=== PATIENT | female | born 1950 | race Caucasian/White ===

== ENCOUNTER 2017-06-05 13:31 | Outpatient (CLI) | payer MEDICARE, BC ==
--- NOTE | 2017-06-05 15:18 | CT ---
CT PULMONARY LUNG SCREENING LOW DOSE CHEST CT: Date: 06/05/17 COMPARISON: None. HISTORY: Current smoker, history of smoking for 40 years - 1 pack per day. TECHNIQUE: Noncontrast CT imaging at 1.25 mm intervals from the thoracic inlet through the upper abdomen obtaine d without contrast. Coronal and sagittal reformatted imaging obtained. FINDINGS: The lack of contrast limits assessment of the imaged viscera, the vascular structures, and for lympha denopathy. There is atherosclerotic calcification of the aortic arch in the region of the proximal left coronary artery. Limited assessment of the upper abdomen appears grossly unremarkable. There is no pleural, p ericardial, or mediastinal fluid evident. No pneumothorax is seen on either side. No suspicious pulmonary parenchymal mass lesion/nodule identified on either side. There are a few sca ttered calcified granulomata identified within the right lung. There is a noncalcified right lower lo be pulmonary nodule on axial image 40 measuring in the 2-3 mm range. Osseous structures demonstrate a nonspecific small sclerotic focus within the T11 vertebral body right of midline, measuring less catrachita n 1.0 cm in size, likely on the basis of benign bone island in the absence of known metastatic diseas e. IMPRESSION: 1. Lung-RADS Category 2 - Benign appearance or behavior. Continue annual screening with low dose maldon[address] st CT in 12 months. 2. Lung-RADS Category S - Atherosclerotic calcification as detailed above. POS: VANESSA
== END 2017-06-05 13:32 | disposition home or self-care (01) ==
LOC: ULT 13:31
PROVIDERS: ATTEND Family Medicine
DX: Z00.00 Encounter for general adult medical examination without abnormal findings (principal); Z12.2 Encounter for screening for malignant neoplasm of respiratory organs; I51.7 Cardiomegaly; F17.210 Nicotine dependence, cigarettes, uncomplicated; I70.0 Atherosclerosis of aorta; I08.1 Rheumatic disorders of both mitral and tricuspid valves; I87.8 Other specified disorders of veins
CPT/HCPCS: 93306; G0297

== ENCOUNTER 2018-04-14 09:17 | Outpatient (CLI) | payer MEDICARE, BC ==
--- NOTE | 2018-04-14 11:19 | BD ---
BONE DENSITOMETRY USING DEXA: HISTORY: Postmenopausal screening for osteoporosis. LUMBAR SPINE BMD (g/cm2) T-SCORE Z-SCORE L1 1.009 0.2 1.8 L2 1.022 -0.1 1.8 L3 0.993 -0.8 1.1 L4 0.983 -0.7 1.3 TOTAL 1.001 -0.4 1.4 NECK 0.772 -0.8 0.9 TOTAL 0.970 0.2 1.5 IMPRESSION: Normal bone mineral density. No evidence of osteopenia/osteoporosis. POS: C
== END 2018-04-14 09:18 | disposition home or self-care (01) ==
LOC: BICMAMMO 09:17
PROVIDERS: ATTEND Family Medicine
DX: Z12.31 Encounter for screening mammogram for malignant neoplasm of breast (principal); Z78.0 Asymptomatic menopausal state
CPT/HCPCS: 77063; 77067; 77080

== ENCOUNTER 2019-09-07 09:45 | Outpatient (CLI) | payer MEDICARE, BC ==
--- NOTE | 2019-09-07 11:14 | CT ---
CT THORAX NONCONTRAST: (Low dose CT pulmonary lung scan screening) DATE: 09/07/2019 HISTORY: 68-year-old female smoker presents for lung cancer screening. FINDINGS: No suspicious pulmonary nodules. Calcified granuloma posterior segment right upper lobe. Otherwise, l ungs are clear. Trachea and bronchi are normal. No thoracic aortic aneurysm, cardiomegaly, pericardial effusion, pleural effusion, pneumothorax, or mediastinal lymphadenopathy. IMPRESSION: Lung RADS category 2-benign appearance or behavior. Continue annual screening with low dose chest CT in one year.
== END 2019-09-07 09:46 | disposition home or self-care (01) ==
LOC: BICCT 09:45
PROVIDERS: ATTEND Family Medicine
DX: Z12.2 Encounter for screening for malignant neoplasm of respiratory organs (principal); F17.210 Nicotine dependence, cigarettes, uncomplicated
CPT/HCPCS: G0297

== ENCOUNTER 2019-11-05 05:44 | Day surgery (SDC) | payer MEDICARE, BC ==
[2019-11-01 13:00] VITALS: BMI 31.1
[2019-11-05] MEDS ORDERED: Fentanyl 100 MCG/2 ML VIAL ONE (07:20)
[2019-11-05] MEDS ORDERED: Midazolam HCl 2 mg/2 ml Vial ONE (07:20)
[2019-11-05] MEDS ORDERED: hydrALAZINE 20 MG/ML VIAL ONE ×2 (10:25→11:04)
[2019-11-05] MEDS ORDERED: hydrALAZINE 20 MG/ML VIAL SLOW IVP SCH (11:15)
[2019-11-05] MEDS ORDERED: Iopamidol 370 76% 100 ML VIAL ONE (13:27)
[2019-11-06] MEDS ORDERED: hydrALAZINE 20 MG/ML VIAL SLOW IVP SCH (10:25)
== END 2019-11-05 11:48 | disposition home or self-care (01) ==
LOC: CCL 05:44
PROVIDERS: ATTEND Internal Medicine Cardiovascular Disease
PROC: 4A023N7 Measurement of Cardiac Sampling and Pressure, Left Heart, Percutaneous Approach (ICD-10-PCS; principal; 2019-11-05)
PROC: B2111ZZ Fluoroscopy of Multiple Coronary Arteries using Low Osmolar Contrast (ICD-10-PCS; 2019-11-05)
DX: R07.89 Other chest pain (principal); E78.00 Pure hypercholesterolemia, unspecified; I10 Essential (primary) hypertension; E11.9 Type 2 diabetes mellitus without complications; E78.5 Hyperlipidemia, unspecified; Q20.8 Other congenital malformations of cardiac chambers and connections; M19.90 Unspecified osteoarthritis, unspecified site; M79.7 Fibromyalgia; F17.210 Nicotine dependence, cigarettes, uncomplicated; E55.9 Vitamin D deficiency, unspecified; Z79.1 Long term (current) use of non-steroidal anti-inflammatories (NSAID); Z79.899 Other long term (current) drug therapy; Z88.8 Allergy status to other drugs, medicaments and biological substances
CPT/HCPCS: 93458; 99152; J0360; J1644; J2250; J3010; Q9967

== ENCOUNTER 2019-11-29 10:54 | Outpatient (CLI) | payer MEDICARE, BC ==
--- NOTE | 2019-11-29 12:20 | RAD ---
RIGHT SHOULDER 3 VIEWS: HISTORY: Shoulder pain. FINDINGS: No fracture or dislocation. AC joint normally aligned. IMPRESSION: No acute finding. POS: AH
== END 2019-11-29 10:55 | disposition home or self-care (01) ==
LOC: SCSRAD 10:54
PROVIDERS: ATTEND Family Medicine
DX: M25.511 Pain in right shoulder (principal)

== ENCOUNTER 2021-01-08 08:53 | Outpatient (CLI) | payer MEDICARE, BC | END 2021-01-08 08:54 | disposition home or self-care (01) | LOC: BICMAMMO 08:53 | PROVIDERS: ATTEND Family Medicine | DX: Z12.31 Encounter for screening mammogram for malignant neoplasm of breast (principal) | CPT/HCPCS: 77063; 77067 ==

== ENCOUNTER 2021-04-26 13:00 | Outpatient (CLI) | payer MEDICARE, BC | END 2021-04-26 13:01 | disposition home or self-care (01) | LOC: SCSMRI 13:00 | PROVIDERS: ATTEND Family Medicine | DX: M47.26 Other spondylosis with radiculopathy, lumbar region (principal); M47.27 Other spondylosis with radiculopathy, lumbosacral region; M47.25 Other spondylosis with radiculopathy, thoracolumbar region | CPT/HCPCS: 72148 ==

== ENCOUNTER 2021-09-18 09:32 | Outpatient (CLI) | payer MEDICARE, BC | END 2021-09-18 09:33 | disposition home or self-care (01) | LOC: BICMAMMO 09:32 | PROVIDERS: ATTEND Family Medicine | DX: Z13.820 Encounter for screening for osteoporosis (principal); Z78.0 Asymptomatic menopausal state | CPT/HCPCS: 77080 ==

== ENCOUNTER 2021-11-20 14:02 | Outpatient (CLI) | payer MEDICARE, BC | END 2021-11-20 14:03 | disposition home or self-care (01) | LOC: BICCT 14:02 | PROVIDERS: ATTEND Family Medicine | DX: Z12.2 Encounter for screening for malignant neoplasm of respiratory organs (principal); F17.210 Nicotine dependence, cigarettes, uncomplicated | CPT/HCPCS: 71271 ==

== ENCOUNTER 2022-07-18 10:44 | Outpatient (CLI) | payer MEDICARE, BC | END 2022-07-18 10:45 | disposition home or self-care (01) | LOC: SCSRAD 10:44 | PROVIDERS: ATTEND Family Medicine | DX: M25.551 Pain in right hip (principal); M16.11 Unilateral primary osteoarthritis, right hip ==

== ENCOUNTER 2024-04-15 09:51 | Outpatient (CLI) | payer OTHER, BC | END 2024-04-15 09:52 | disposition home or self-care (01) | LOC: BICCT 09:51 | PROVIDERS: ATTEND Family Medicine | DX: Z12.2 Encounter for screening for malignant neoplasm of respiratory organs (principal); Z78.0 Asymptomatic menopausal state; F17.210 Nicotine dependence, cigarettes, uncomplicated; M85.852 Other specified disorders of bone density and structure, left thigh | CPT/HCPCS: 71271; 77080 ==